=== PATIENT | male | born 1935 | race Caucasian/White ===

== ENCOUNTER → 2017-03-14 | Outpatient (CLI) | payer OTHER | END | disposition home or self-care (01) | LOC: PCVCCLINIC 11:48 | PROVIDERS: ATTEND Internal Medicine Cardiovascular Disease | DX: I51.7 Cardiomegaly (principal); I25.10 Atherosclerotic heart disease of native coronary artery without angina pectoris; I10 Essential (primary) hypertension; I77.89 Other specified disorders of arteries and arterioles; I63.9 Cerebral infarction, unspecified; I25.5 Ischemic cardiomyopathy; K75.9 Inflammatory liver disease, unspecified; E78.00 Pure hypercholesterolemia, unspecified; Z87.891 Personal history of nicotine dependence; Z79.82 Long term (current) use of aspirin; Z79.899 Other long term (current) drug therapy | CPT/HCPCS: 80061; 93005; G0463 ==

== ENCOUNTER → 2017-04-01 | Outpatient (CLI) | payer OTHER ==
--- NOTE | 2017-04-01 16:57 | PCVCIMAG ---
APPROVED REPORT Exam: Stress Echocardiogram Indication: CABG, HTN, HLP, CAD Patient Location: Echo lab Stress Nurse: Kenyatta Serra RN Status: routine HR: 75 bpm Rhythm: NSR Procedure The patient underwent an Exercise Stress Test using the Surinder Protocol. Blood pressure, heart rate, and EKG were monitored. An Echocardiogram was performed by aircraft systems technician in four stages in quad fashion. At peak stress, four selected images were obtained and placed side by side with resting images for comparison. Stress Test Details Stress Test: Exercise stress testing was performed using a modified Surinder protocol. HR Resting HR: 75 bpmMax Heart Rate (APMHR): 136 bpm Target HR (85% APMHR): 115 bpm BP Resting BP: 160/80 mmHg Max BP: 152/74 mmHg Recovery BP: 164/82 mmHg ECG Resting ECG: Sinus Rhythm Clinical Reason for Termination: ST changes, Maximal effort Stress Symptoms: Dyspnea Exercise duration: 7 min 37 sec Highest Stage Achieved: Stage 2: 2.5 mph at 12% grade. Exercise capacity: 10.10 METs Overall Exercise Capacity for Age: Good Pre-Stress Echo The resting Echocardiogram showed normal left ventricular contractility with an estimated Ejection Fraction of about 50-55%. Normal wall motion in all segments on baseline images. Post-Stress Echo The stress Echocardiogram showed normal left ventricular contractility with an estimated Ejection Fraction of about 55-60%. Normal augmentation of wall motion in all segments on post stress images. Conclusion Clinical Response: Non-ischemic Exercise Capacity: Average Stress ECG Response: Non-ischemic Stress Echo Images: Non-ischemic Other Information Study Quality: Adequate
--- NOTE | 2017-04-02 09:23 | PCVCIMAG ---
APPROVED REPORT Indications Stenosis Risk Factors Hypertension: CAD, Doppler Spectral Velocity Analysis PSV / EDVPSV / EDV ECA (R) 187 / 18 cm/sECA (L) 161 / 15 cm/s dICA (R) 32 / 7 cm/sdICA (L) 71 / 15 cm/s Clarice (R) 181 / 18 cm/smICA (L) 65 / 11 cm/s pICA (R) 278 / 41 cm/spICA (L) 93 / 17 cm/s Bulb (R) 146 / 31 cm/sBulb (L) 113 / 14 cm/s dCCA (R) 59 / 9 cm/sdCCA (L) 90 / 13 cm/s mCCA (R) 59 / 5 cm/smCCA (L) 92 / 14 cm/s Vert (R) 53 / 12 cm/sVert (L) 87 / 0 cm/s ICA/CCA 4.71ICA/CCA 1.03 Basic Measurements Blood Pressure: Pulses: Right Left RightLeft Brachial(Sitting) 156/95aqWl996/78mmHgTemporal Real Time B-Mode Imaging Vert. (R)AntegradeVert. (L)Antegrade Findings The right carotid bulb has moderately severe calcified plaque. The right proximal internal carotid artery shows 80-90% stenosis. The right common carotid artery shows no significant stenosis. The right external carotid artery shows >50% stenosis. The left carotid bulb has moderate calcified plaque. The left proximal internal carotid artery shows <40% stenosis. The left common carotid artery shows no significant stenosis. The left external carotid artery shows <50% stenosis. Conclusion 1. Right internal carotid artery stenosis (80-90%) 2. Left internal carotid artery stenosis (<40%) 3. Antegrade vertebral flow
== END | disposition home or self-care (01) ==
LOC: PCVCIMAG 14:54
PROVIDERS: ATTEND Internal Medicine Cardiovascular Disease
DX: I25.10 Atherosclerotic heart disease of native coronary artery without angina pectoris (principal); I65.23 Occlusion and stenosis of bilateral carotid arteries; I10 Essential (primary) hypertension; E78.5 Hyperlipidemia, unspecified; C61 Malignant neoplasm of prostate; I25.5 Ischemic cardiomyopathy; E78.00 Pure hypercholesterolemia, unspecified; Z95.1 Presence of aortocoronary bypass graft; Z79.82 Long term (current) use of aspirin; Z87.891 Personal history of nicotine dependence
CPT/HCPCS: 93325; 93351; 93880

== ENCOUNTER → 2017-04-10 | Outpatient (CLI) | payer OTHER | END | disposition home or self-care (01) | LOC: PCVCCLINIC 16:17 | PROVIDERS: ATTEND Nuclear Medicine Nuclear Cardiology | DX: I65.23 Occlusion and stenosis of bilateral carotid arteries (principal); I25.10 Atherosclerotic heart disease of native coronary artery without angina pectoris; I10 Essential (primary) hypertension; E78.00 Pure hypercholesterolemia, unspecified; Z85.46 Personal history of malignant neoplasm of prostate; Z86.73 Personal history of transient ischemic attack (TIA), and cerebral infarction without residual deficits; Z95.1 Presence of aortocoronary bypass graft; Z87.891 Personal history of nicotine dependence; Z79.82 Long term (current) use of aspirin | CPT/HCPCS: G0463 ==

== ENCOUNTER → 2017-04-15 | Outpatient (CLI) | payer OTHER ==
--- NOTE | 2017-04-15 16:21 | PCVCINTER ---
EXAM: 1 CERVICOEPHALIC ARCH AORTOGRAM 2 BILATERAL CAROTID ANGIOGRAPHY 3 LEFT SUBCLAVIAN ARTERY ANGIOGRAPHY 4 BILATERAL RENAL ANGIOGRAPHY 5 BILATERAL ILIOFEMORAL ANGIOGRAPHY INDICATION: Carotid occlusive disease. Left subclavian steal. Hypertension. Renal atherosclerosis. Peripheral arterial disease. Leg pain. PROCEDURE: Procedure and risks of the procedures listed above were discussed with the patient and consent obtained. Risks including but not limited to bleeding, infection, stroke, vascular injury, neurologic injury, embolization, allergic reactions, and contrast-induced nephropathy requiring dialysis were discussed as appropriate and consent obtained. Patient was placed on the angiography table. IV conscious sedation was utilized with appropriate monitoring for 60 minutes. The right groin was prepped and draped in the normal sterile fashion. Ultrasound was used to interrogate the right groin and demonstrate the right common femoral artery. An ultrasound image was saved. Under ultrasound guidance a 21 gauge needle was used to gain access into the right common femoral artery and a 6F vascular sheath was placed. Catheter was placed into the ascending aorta and cervicocephalic aortic arch angiogram performed. Catheter was placed into the suprarenal abdominal aorta and abdominal aortic angiogram performed. Catheter was positioned at the aortic bifurcation and bilateral iliofemoral angiography was performed. Catheter was placed into the right common carotid artery and right common carotid angiogram performed. Catheter was placed into the left common carotid artery and left common carotid angiogram performed. Catheter was placed into the left subclavian artery and left subclavian angiogram performed. Catheter was placed into the right renal artery and right renal angiogram performed. Catheter was placed into the left renal artery and left renal angiogram performed. Catheters and wires were removed and hemostasis obtained using the FISH device. No immediate complications. FINDINGS: Cervicocephalic arch aortogram: Moderate plaque at the origins of the great vessels does not cause significant stenosis. The left subclavian artery is occluded. The right vertebral artery shows good patency and is dominant. Right common carotid angiogram: This injection fills the right middle cerebral distribution which shows scattered plaque without significant stenosis. The right A1 segment is hypoplastic. Moderate calcific plaque at the origin of the internal carotid artery results in 85% stenosis. The common and external carotid arteries are patent. Mild plaque in the cavernous carotid artery without stenosis. Left common carotid angiogram: This injection fills the right and left anterior cerebral distribution and the left middle cerebral distribution which show no flow-limiting stenosis or aneurysm. Mild plaque proximal internal carotid artery with a small area of ulceration does not cause significant stenosis. The common and external carotid arteries show adequate patency. Left subclavian angiogram: Scattered plaque proximal vessel does not cause significant stenosis. Mid and lateral portion of the vessels are patent. The vertebral artery is occluded at its origin. Right renal angiogram: Mild plaque proximal vessel does not cause significant stenosis. No branch vessel stenosis. Left renal angiogram: Mild plaque proximal vessel does not cause significant stenosis. No branch vessel stenosis. Aortogram: There is one right and one left renal artery. Moderately extensive calcific plaque throughout the abdominal aorta without significant stenosis. Bilateral iliofemoral angiogram: Moderate plaque throughout the right and left common iliac and external iliac arteries without significant stenosis. Both internal iliac arteries are patent. Mild plaque in the right and left common femoral arteries bilaterally without significant stenosis. The profunda femoral arteries are patent. IMPRESSION: 85% stenosis at the origin of the right internal carotid artery. No significant left carotid stenosis. 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 LOC:[place] [id number]
== END | disposition home or self-care (01) ==
LOC: PCVCINTER 07:23
PROVIDERS: ATTEND Nuclear Medicine Nuclear Cardiology
DX: I70.213 Atherosclerosis of native arteries of extremities with intermittent claudication, bilateral legs (principal); G45.8 Other transient cerebral ischemic attacks and related syndromes; I70.1 Atherosclerosis of renal artery
CPT/HCPCS: 36223; 36225; 36252; 75630; 75716; 76937; 99152; 99153; C1751; C1760; C1769; C1894; Q9967; 36215; 36221; 75710

== ENCOUNTER → 2017-07-15 | Outpatient (CLI) | payer OTHER | END | disposition home or self-care (01) | LOC: PCVCCLINIC 09:48 | PROVIDERS: ATTEND Internal Medicine Cardiovascular Disease | DX: I25.10 Atherosclerotic heart disease of native coronary artery without angina pectoris (principal); I10 Essential (primary) hypertension; E78.5 Hyperlipidemia, unspecified; I77.9 Disorder of arteries and arterioles, unspecified; I25.5 Ischemic cardiomyopathy; F03.90 Unspecified dementia, unspecified severity, without behavioral disturbance, psychotic disturbance, mood disturbance, and anxiety; I45.10 Unspecified right bundle-branch block; R00.1 Bradycardia, unspecified; Z95.1 Presence of aortocoronary bypass graft; Z87.891 Personal history of nicotine dependence; Z79.899 Other long term (current) drug therapy | CPT/HCPCS: 93005; G0463 ==